=== PATIENT | female | born 1990 | race Caucasian/White ===

== ENCOUNTER 2016-06-02 22:09 | Inpatient (IN) | payer OTHER ==
[~2016-06-02] VITALS: Ht 180.3 cm; Wt 115.0 kg
[~2016-06-02 22:09] MED LIST: CEPH2CAP PO; PERCOCET PO; PRENTAB45 PO; RANI1TAB6 PO; TYLE325T5 PO; ZOLO100T PO
[2016-06-02] MEDS ORDERED: BETAMETHASONE SOLUSPAN 6MG/ML INJ 5ML (J0702) IM SCH (23:15)
[2016-06-02] MEDS ORDERED: MAGNESIUM SULFATE 4% INJ 20GM/500ML (40MG/ML) (J3475) As Ordered ONE (23:15)
[2016-06-02] MEDS ORDERED: LR 1,000 ML IV SCH (23:20)
[2016-06-02] MEDS ORDERED: MAGNESIUM *L&D* 4 GM/100 ML BAG (40MG/ML) (J3475) As Ordered ONE (23:20)
[2016-06-02] MEDS ORDERED: AMPICILLIN 2 GM VIAL As Ordered ONE (23:21)
[2016-06-02] MEDS ORDERED: CALCIUM GLUCONATE 1,000 MG in D5W MINI-BAG PLUS 100 ML IV PRN (23:30)
[2016-06-02] MEDS ORDERED: MAG Sulf (L&D) 4 GM/100 ML 6 GM in APPROPRIATE DILUENT 1 EA IV ONE (23:45)
[2016-06-02] MEDS ORDERED: MAG Sulf (OBGYN) 20GM/500ML 20,000 MG in APPROPRIATE DILUENT 1 EA IV SCH (23:45)
[2016-06-02 23:58] LABS: BASO # 0.1 K/mm3 (0.0-0.2); BASO % 0.6 % (0.0-1.0); EOS % 0.4 % (0.0-3.0); LARGE UNSTAINED CELL # 0.4 K/mm3 (0.0-0.4); LARGE UNSTAINED CELL % 3.9 % (0.0-4.0); LYMPH # 2.6 K/mm3 (1.5-6.5); LYMPH % 25.7 % (24.0-44.0); MEAN CORPUSCULAR HEMOGLOBIN 27.6 pg (27.0-33.0); MEAN CORPUSCULAR HGB CONC 33.9 g/dl (32.0-36.5); MEAN CORPUSCULAR VOLUME 81.3 fl (80.0-96.0); MONO # 0.4 K/mm3 (0.0-0.8); MONO % 4.2 % (0.0-5.0); NEUTROPHILS # 6.7 K/mm3 (1.8-7.7); NEUTROPHILS % 65.2 % (36.0-66.0); PLATELET COUNT, AUTOMATED 218 k/mm3 (150-450); WHITE BLOOD COUNT 10.2 K/mm3 (4.0-10.0)
[2016-06-02] MEDS ORDERED: VANCOMYCIN 1000 MG/20 ML VIAL (J3370) As Ordered ONE (23:59)
[2016-06-03] VITALS (8 sets, daily range): BP systolic 121–144; BP diastolic 74–89
[2016-06-03] MEDS ORDERED: VANCOMYCIN HCL 1,000 MG, VIAL MATE ADAPTER 1 EACH in D5W 250 ML IV SCH ×3
[2016-06-03] MEDS ORDERED: OXYTOCIN 30 UNITS IN 0.9% NaCl 500ML IV BAG (J2590) As Ordered ONE ×2 (00:06→01:48)
[2016-06-03] MEDS ORDERED: fentaNYL 100 MCG/2 ML INJECTION (J3010) As Ordered ONE ×2 (01:25→03:31)
[2016-06-03] MEDS ORDERED: LIDOCAINE 1% SDV INJ 30 ML VIAL As Ordered ONE (02:26)
[2016-06-03] MEDS ORDERED: CARBOPROST TROMETHAMINE 250 MCG/ML AMP As Ordered ONE (02:59)
[2016-06-03 03:26] LABS: CORD GAS ABE V -9.9; CORD GAS HCO3 V 16.4 MEQ/L; CORD GAS O2 SAT V 78.6 %; CORD GAS PCO2 V 37.3 mmHg; CORD GAS PH V 7.261 UNITS; CORD GAS PO2 V 38.9 mmHg; CORD GAS SBC V 16.3 MEQ/L; CORD GAS TCO2 V 17.5 MEQ/L
[2016-06-03] MEDS ORDERED: LIDOCAINE 2% INJ 100 MG/5 ML SYRINGE As Ordered ONE (03:31)
[2016-06-03] MEDS ORDERED: PROPOFOL 200 MG/20 ML VIAL As Ordered ONE ×2 (03:31→04:00)
[2016-06-03] MEDS ORDERED: MIDAZOLAM INJ 2 MG/2 ML VIAL (J2250) As Ordered ONE (03:31)
[2016-06-03] MEDS ORDERED: ESTROGENS VAGINAL CREAM 30GM As Ordered ONE (04:12)
[2016-06-03] MEDS ORDERED: ESTROGENS VAGINAL CREAM 30GM PV ONE (04:25)
[2016-06-03] MEDS ORDERED: OXYTOCIN DRIP 30 UNITS in APPROPRIATE DILUENT 1 EA IV SCH (05:14)
[2016-06-03] MEDS ORDERED: LR 1,000 ML IV SCH (05:15)
[2016-06-03] MEDS ORDERED: miSOPROStol 200 MCG TAB (S0191) PR ONE (05:15)
[2016-06-03] MEDS ORDERED: DIBUCAINE 1% OINTMENT 30GM TOP PRN (05:15)
[2016-06-03] MEDS ORDERED: METHYLERGONOVINE MALEATE 0.2 MG/ML VIAL (J2210) IM ONE (05:15)
[2016-06-03] MEDS ORDERED: RHOGAM 300 MCG (1500 IU) INJ (J2790) IM SCH (05:15)
[2016-06-03] MEDS ORDERED: fentaNYL 100 MCG/2 ML INJECTION (J3010) IV PRN (05:15)
[2016-06-03] MEDS ORDERED: ONDANSETRON 4MG/2ML VIAL (J2405) IV PRN ×2 (05:15)
[2016-06-03] MEDS ORDERED: MORPHINE 2 MG/ML 1ML SYRINGE IV PRN (05:15)
[2016-06-03] MEDS ORDERED: MEASLES,MUMPS,RUBELLA VACCINE INJ (MMR-II) (90707) SC SCH (05:15)
[2016-06-03] MEDS ORDERED: LIDOCAINE 1% MDV INJ 50 ML VIAL INFIL ONE (05:15)
[2016-06-03] MEDS ORDERED: IBUPROFEN 800 MG TAB PO PRN (05:15)
[2016-06-03] MEDS ORDERED: DOCUSATE SODIUM 100 MG CAP PO PRN (05:15)
[2016-06-03] MEDS ORDERED: GENTAMICIN SULFATE IV ONE (05:30)
[2016-06-03] MEDS ORDERED: CLINDAMYCIN 900 MG in APPROPRIATE DILUENT 1 EA IV ONE (05:30)
[2016-06-03] MEDS ORDERED: D5W IV ONE (05:30)
--- NOTE | 2016-06-03 05:37 | HPEPDOC ---
Obstetrical History & Physical General Date of Admission Jun 02, 2016 at 23:04 History of Present Illness Sheela is a 26yo with SIUP at 32w0d as of midnight 06/03 who presented at 2230 with complaint of leakage of fluid, yellowish, and contractions. Feels good movement. course significant for known megacystic bladder with bilateral hydronephrosis. She was scheduled to meet with [facility] in [place] next week for first time. 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 She recently transferred care here from [place]. She also had chlamydia in early with test of cure performed, but result as yet unknown. She has Crohn's disease, not on any medications. Also, depression treated with zoloft. Allergic to amoxicillin (hives). GBS unknown. Chief Complaint: Contractions, pre-term, LOF, pre-term Information Provided By: Patient Care Care: Good Care Dating Final EDC: Jul 29, 2016 Antepartum Course Diagnos(e)s course significant for known megacystic bladder with bilateral hydronephrosis. She was scheduled to meet with [facility] in [place] next week for first time. 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 She also had chlamydia in early with test of cure performed, but result as yet unknown. She has Crohn's disease, not on any medications. Also, depression treated with zoloft. Past Medical History Past Obstetrical History : Past Obstetrical History: Multigravida Gestation: 37 Type of Delivery: Spontaneous Vaginal Del. Sex of : Male Complications: Yes ( hemorrhage, NO blood transfusion) CAT TENDER History: History of STD Past Medical History Medical History Crohn's disease, not on any medications. Also, depression treated with zoloft. Allergic to amoxicillin (hives). Surgical History: Denies Family History Significant Family History: No pertinent family hx Social History Marital Status: Family situation: Spouse/partner home Psychosocial History: Anxiety, Depression * Smoker: non-smoker Alcohol: denies Drugs: denies Allergies Coded Allergies: Amoxicillin (Verified Allergy, Mild, 03/05/13) RASH Clavulanic Acid (Verified Allergy, Mild, 03/05/13) RASH Medications Scheduled ( One Daily) Daily Tab 1 TAB PO DAILY Ranitidine HCl (Ranitidine [address]) 150 Mg Tab 1 TAB PO DAILY Sertraline Hcl (Zoloft) 100 Mg Tab 100 MG PO DAILY Miscellaneous Medications Acetaminophen (Tylenol) 325 Mg Tab 650 MG PO PAIN SCALE 1-5 Physical Examination Physical Examination GENERAL: Alert and oriented times three, uncomfortable with contractions. BREAST: . ABDOMEN: Gravid and non-tender to touch. FETUS: Is vertex (VTX) by sterile vaginal examination (SVE) and TAUS HEART RATE: Regular rate and rhythm. LUNGS: Clear to auscultation (CTA). EXTREMITIES: trace edema bilateral lower extremities Grossly ruptured on presentation with bright yellow fluid and nitrazine immediately positive. SSE revealed hair with pooling. Laboratory Data 24H LABS Laboratory Tests 2 06/02/16 23:30: White Blood Count 10.2H, Red Blood Count 4.15, Hemoglobin 11.5L, Hematocrit 33.7L, Mean Corpuscular Volume 81.3, Mean Corpuscular Hemoglobin 27.6, Mean Corpuscular Hemoglobin Concent 33.9, Red Cell Distribution Width 15.0H, Platelet Count 218, Neutrophils (%) (Auto) 65.2, Lymphocytes (%) (Auto) 25.7, Monocytes (%) (Auto) 4.2, Eosinophils (%) (Auto) 0.4, Basophils (%) (Auto) 0.6, Neutrophils # (Auto) 6.7, Lymphocytes # (Auto) 2.6, Monocytes # (Auto) 0.4, Eosinophils # (Auto) 0.0, Basophils # (Auto) 0.1, Large Unclassified Cells # 0.4 , Large Unclassified Cells % 3.9 CBC/BMP Laboratory Tests 06/02/16 23:30 Red Blood Count 4.15, Mean Corpuscular Volume 81.3, Mean Corpuscular Hemoglobin 27.6, Mean Corpuscular Hemoglobin Concent 33.9, Red Cell Distribution Width 15.0 H, Neutrophils (%) (Auto) 65.2, Lymphocytes (%) (Auto) 25.7, Monocytes (%) (Auto) 4.2, Eosinophils (%) (Auto) 0.4, Basophils (%) (Auto) 0.6, Neutrophils # (Auto) 6.7, Lymphocytes # (Auto) 2.6, Monocytes # (Auto) 0.4, Eosinophils # ( Auto) 0.0, Basophils # (Auto) 0.1 Pertinent Laboratoy Data Blood Type: A- RBC Antibody Screen: Negative HIV: Negative Hepatitis B: Negative Hepatitis C: Unknown Rapid Plasma Reagin: Nonreactive Chlamydia/Gonorrhea: Positive Group B Streptococcus: Unknown Steroid Therapy Steroid Therapy: No Vaginal Examination Dilation: 6 cm Effacement: 80+% Station: -2 Cervical Consistency: Soft Cervical Position: Anterior Presentation: Cephalic presentation Assessment Heart Rate (FHR): 130 Variability: Moderate Accelerations: Positive Decelerations: None Tocometer Contractions: Yes Frequency: every 2-4 min. Duration: greater than 60 seconds Strength: palpated as strong Assessment/Plan Assessment Sheela is a 26yo with SIUP at 32w0d as of midnight 06/03 with PPROM at 1930, yellow. Grossly ruptured with bright yellow fluid- does not appear to be meconium, nitrazine positive. In active labor with initial SCE 6/80/-2. Cephalic by TAUS, prominent enlarged bladder noted. Reassuring FHRT with ctx q2-3 min. course significant for known megacystic bladder with bilateral hydronephrosis. She was scheduled to meet with [facility] in [place] next week for first time. 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 She also had chlamydia in early with test of cure performed, but result as yet unknown. She has Crohn's disease, not on any medications. Also, depression treated with zoloft. Allergic to amoxicillin (hives). GBS unknown. Plan Admit and orient. Verbally counseled and consented for vaginal delivery. I had a thorough discussion with Sheela regarding delivery and the possibility for intracranial hemorrhage, necrotizing enterocolitis, and respiratory distress. I explained the rationale for steroids for lung maturity and Mg for neuroprotection as well as abx for GBS unknown. I spoke with NICU Dr. Greer about the patient and requested his presence for delivery. I spoke with a physician from [facility] who confirmed vaginal delivery is the approved mode of delivery despite the 's megacystic bladder. Betamethasone 12mg IM q24hr IV Magnesium, 6g bolus then 2g maintenance dose per protocol GBS unknown with labor/PPROM, needs abx prophylaxis- allergy to amox: vancomycin 1g q12hr Diet: clear liquids Labs and intravenous (IV) per unit protocol. Lactated Ringers (LR): Bolus 500 mL, then at 125 mL/hr. Anticipate ESTEPHANIA Caldera MD Jun 03, 2016 00:14
[2016-06-03 05:42] LABS: MEAN CORPUSCULAR HEMOGLOBIN 27.8 pg (27.0-33.0); MEAN CORPUSCULAR HGB CONC 33.8 g/dl (32.0-36.5); MEAN CORPUSCULAR VOLUME 82.2 fl (80.0-96.0); RED CELL DISTRIBUTION WIDTH 15.8 % (11.5-14.5); WHITE BLOOD COUNT 23.9 K/mm3 (4.0-10.0)
[2016-06-03] MEDS ORDERED: METAL LOCK LOOP XX ONE (06:25)
[2016-06-03] MEDS: PERCOCET 5MG/325MG TAB PO PRN ×5 (06:37→22:10)
[2016-06-03] MEDS ORDERED: MORPHINE 10 MG/ML 1ML VIAL IV ONE (06:45)
[2016-06-03] MEDS ORDERED: SERTRALINE 100 MG TAB PO SCH ×2 (09:00→21:00)
[2016-06-03] MEDS ORDERED: PRENATAL VITAMIN TAB PO SCH (09:00)
--- NOTE | 2016-06-03 11:33 | DNPDOC ---
Delivery Note Delivery Note Late entry due to extensive cervical laceration repair for patient after delivery. DATE OF DELIVERY: Jun 01, 2016 at 11:06 PREDELIVERY DIAGNOSIS: PPROM/active labor at 32wk gestation, known megacystic bladder with bilateral hydronephrosis POST DELIVERY DIAGNOSIS: PPROM/active labor at 32wk gestation, known megacystic bladder with bilateral hydronephrosis, delivered with complication of "abdominal dystocia", post- hemorrhage with extensive cervical laceration PROCEDURE: Spontaneous vaginal delivery complicated by "abdominal dystocia " FABRICATION SUPERVISOR: Dr. Estephania Calhoun MD ANESTHESIA: none ESTIMATED BLOOD LOSS: 700 mL. FINDINGS: Female with abdominal circumference 42cm,no nuchal cord, Score 3/4, cord gas pHv 7.261 with BE -9.9 DELIVERY SUMMARY: Sheela is a 26yo G2 now P1102 who was admitted to L&D for PPROM/active labor- she was 31w6d when she presented to L&D, but only an hour and a half shy of 32wk. On presentation she was grossly ruptured with nitrizine positive. SCE 6/80 /-2 with regular painful ctx. TAUS revealed cephalic presentation with very prominent bladder, consistent with known megacystic bladder and bilateral hydronephrosis. Patient was not stable for transfer since she was rapidly progressing in labor. I called to [facility] and spoke with the on-call MFM who stated recommendation was to deliver the patient vaginally despite the megacystic bladder. I called Dr. Greer the on-call worm sorter and informed him the patient would be delivering here, and requested his presence for delivery. The patient was given 12mg IM betamethasone for lung maturity and started on 6g IV Mg bolus for neuroprotection. Vancomycin was ordered for pre-term delivery with GBS status unknown and patient's PCN allergy. Within 2 hours the patient progressed to complete with urge to push. She was not able to receive epidural prior to pushing. Given that patient was proven to 9lb previously, she made somewhat slow progress with pushing given the gestational age of 32wk- which alerted me to the fact that the delivery of the abdomen might be difficult. The FHRT remained reassuring during pushing efforts. Dr. Greer was present for the whole of the patient's pushing efforts and delivery. Female delivered at 0113 on 06/03/16. Head delivered OP, the perineum was tight on the chin which was consistent with "turtling". Head restituted ROP. No nuchal cord. While there was no shoulder dystocia (as the anterior shoulder was clearly visible, having delivered under the pubic bone) there was no further progress with maternal pushing efforts and attempt to deliver the baby. At that point the patient was placed in McRobert's position and suprapubic pressure was given with still no progress. I reached in and delivered the posterior shoulder and then the anterior shoulder. With traction on the baby's torso, there was no forward movement. I called for help from the flight test shop mechanic present for the civilian practice, and continued traction on the torso. When the flight test shop mechanic arrived, she helped give even further McRobert's positioning, and the abdomen then began to deliver slowly, cm by cm with great effort on the part of this provider. corpus delivered fully and cord was immediately clamped x2 and cut by myself. The was taken to the awaiting pediatric team. Apgars 3/4. Cord blood obtained due to maternal blood type of A neg and blood gases obtained secondary to "abdominal dystocia". pHv 7.261 and BE -9.9. With gentle downward guidance and suprapubic pressure, placenta delivered spontaneously and intact with a centrally inserted cord. The placenta was approximately twice the size and weight of a normal placenta but otherwise grossly normal in appearance. Fundal massage until both uterine fundus and lower uterine segment firm. Pitocin 30 units IV bolus administered. IV Mg discontinued. Uterus became boggy, so 0.2mg IM methergine given as well as 1000mcg cytotec placed rectally. Inspection of perineum and vaginal wall revealed small 1MLL that was hemostatic , but patient continued to have steady trickling of blood. Uterine sweep performed x3 with only clot retrieved. Bleeding continued. I attempted visualization of the cervix to look for cervical laceration, but even with cervical lac kit and assistance of the flight test shop mechanic, I could not fully walk the cervix and visualize that it was intact. At that point I made the decision to proceed to the OR for exam under anesthesia and called Dr. Velasquez in for further assistance. Please see dictated op report for details of extensive cervical laceration repair and repair of 1mll. Patient received dose of gent/clinda for manual sweeps. was immediately taken to NICU by pediatric team and then transported to [facility] for higher level of care in the setting of anomaly. ESTEPHANIA CALHOUN MD Jun 03, 2016 11:33
--- NOTE | 2016-06-03 11:45 | IPNPDOC ---
Text Note Date of Service The patient was seen on 06/03/16 at 11:33. NOTE Sheela is a 26yo [id number] doing well on PPD 0 s/p at 32w0d complicated by abdominal dystocia related to known megacystic bladder as well as extensive cervical laceration repaired in the OR with associated post- hemorrhage, after presenting to L&D for PPROM/active rapid labor. She received gent/clinda for uterine sweeps, has vaginal packing and chicas in place. She is tolerating regular diet with no n/v. Has no fevers/chills. Is feeling low back/ hip pain and pain in her upper left leg that is keeping her from ambulating. Receiving percocet/motrin for pain, but required a 1 time dose of IV morphine for her pain early this morning. No bleeding noted around the vaginal packing. No dizziness or lightheadedness. Baby was immediately taken to [place] for higher level of care after delivery. Patient desires to breastfeed. Vitals wnl, afebrile General: WDWN, NAD Cardiac: S1S2 present, no murmur Lungs: CTAB Abdomen: soft, appropriately tender to palpation without rebound/guarding, fundus firm at u-2cm Extremities: trace edema of BLE, patient freely moves right leg but declines moving left leg secondary to pain though able to move and easily moves toes H/H: 11.5/33.7 to 11.2/33.1 which is not the expected drop you would see with total EBL from delivery and PPH and OR repair of cervical lac of 1100ml. UOP is robust A/P: Sheela is a 26yo [id number] doing well on PPD 0 s/p at 32w0d complicated by abdominal dystocia related to known megacystic bladder as well as extensive cervical laceration repaired in the OR with associated post- hemorrhage, after presenting to L&D for PPROM/active rapid labor. Her back/hip/leg pain is likely related to positioning on the OR table for the length of time required to repair her cervical lac in combination with delivery. No neuropathy present. Chicas in place with adequate UOP. Vaginal packing in place. Hemodynamically stable with no e/o infection. -Routine care -percocet and motrin for pain -if requires no further doses of IV narcotic, ok to d/c IV -will plan to remove vaginal packing 12hr after placement, later this afternoon -after vaginal packing removed, can remove chicas if patient demonstrates she can walk easily -patient encouraged to breast pump -possible discharge home tomorrow if meeting all milestones Dr. Estephania Calhoun MD Julian GUSTAVO VS,José, I+O VS, José, I+O Laboratory Tests 06/02/16 23:30 Red Blood Count 4.15, Mean Corpuscular Volume 81.3, Mean Corpuscular Hemoglobin 27.6, Mean Corpuscular Hemoglobin Concent 33.9, Red Cell Distribution Width 15.0 H, Neutrophils (%) (Auto) 65.2, Lymphocytes (%) (Auto) 25.7, Monocytes (%) (Auto) 4.2, Eosinophils (%) (Auto) 0.4, Basophils (%) (Auto) 0.6, Neutrophils # (Auto) 6.7, Lymphocytes # (Auto) 2.6, Monocytes # (Auto) 0.4, Eosinophils # ( Auto) 0.0, Basophils # (Auto) 0.1 06/03/16 05:28 Red Blood Count 4.02, Mean Corpuscular Volume 82.2, Mean Corpuscular Hemoglobin 27.8, Mean Corpuscular Hemoglobin Concent 33.8, Red Cell Distribution Width 15.8 H Vital Signs Date Time Temp Pulse Resp B/P Pulse Ox O2 Delivery O2 Flow Rate FiO2 06/03/16 10:43 97.8 88 20 135/87 98 Room Air I&O- Last 24 Hours up to 6 AM 06/03/16 06:00 Intake Total 1545 ml Output Total 950 ml Balance 595 ml ESTEPHANIA CALHOUN MD Jun 03, 2016 11:45
[2016-06-03 17:32] LABS: BASO % 0.2 % (0.0-1.0); LARGE UNSTAINED CELL # 0.5 K/mm3 (0.0-0.4); LARGE UNSTAINED CELL % 2.7 % (0.0-4.0); LYMPH % 10.4 % (24.0-44.0); MEAN CORPUSCULAR HEMOGLOBIN 27.4 pg (27.0-33.0); MEAN CORPUSCULAR HGB CONC 32.9 g/dl (32.0-36.5); MONO # 0.8 K/mm3 (0.0-0.8); MONO % 4.3 % (0.0-5.0); NEUTROPHILS # 15.6 K/mm3 (1.8-7.7); NEUTROPHILS % 82.4 % (36.0-66.0); PLATELET COUNT, AUTOMATED 242 k/mm3 (150-450); RED CELL DISTRIBUTION WIDTH 15.3 % (11.5-14.5)
[2016-06-04 02:17] VITALS: BP 131/72
[2016-06-04] MEDS: PERCOCET 5MG/325MG TAB PO PRN (05:40)
[2016-06-04 06:34] VITALS: BP 125/70
[2016-06-04 06:55] LABS: MEAN CORPUSCULAR HEMOGLOBIN 27.9 pg (27.0-33.0); MEAN CORPUSCULAR HGB CONC 33.3 g/dl (32.0-36.5); RED CELL DISTRIBUTION WIDTH 15.7 % (11.5-14.5); WHITE BLOOD COUNT 13.8 K/mm3 (4.0-10.0)
--- NOTE | 2016-06-04 09:27 | IPNPDOC ---
Text Note Date of Service The patient was seen on 06/04/16 at 09:20. NOTE Post- day 1 Sheela is a 26yo [id number] doing well on PPD 1 s/p at 32w0d complicated by abdominal dystocia related to known megacystic bladder as well as extensive cervical laceration repaired in the OR with associated post- hemorrhage, after presenting to L&D for PPROM/active rapid labor. She received gent/clinda for uterine sweeps, had vaginal packing and chicas removed yesterday afternoon. Since then she has been ambulating and voiding spontaneously with no problem. Lochia is minimal She is tolerating regular diet with no n/v. Has no fevers/chills. Her back and leg pain is improved. Receiving percocet/motrin for pain. No dizziness or lightheadedness. Baby was immediately taken to [place] for higher level of care after delivery. Patient has been breast pumping and saving colostrum. She states this morning that she was finally able to cry yesterday as the magnitude of her baby's current situation finally really settled with her. Her mother will likely be flying up soon to be here to support her. Vitals wnl, afebrile General: WDWN, NAD Cardiac: S1S2 present, no murmur Lungs: CTAB Abdomen: soft, appropriately tender to palpation without rebound/guarding, fundus firm at u-2cm Extremities: trace edema of BLE H/H: 11.5/33.7 on presentation 8.7/26.1 this morning, which is consistent with total EBL from PPH and OR repair of cervical lac of 1100ml. A/P: Sheela is a 26yo [id number] doing well on PPD 1 s/p at 32w0d complicated by abdominal dystocia related to known megacystic bladder as well as extensive cervical laceration repaired in the OR with associated post- hemorrhage, after presenting to L&D for PPROM/active rapid labor. Ambulating and voiding spontaneously without issue since vaginal packing and chicas removed yesterday- lochia minimal. Hemodynamically stable with no e/o infection. Appropriately coping with severity of her 's health complications. -discharge to home today -percocet and motrin for pain -patient encouraged to breast pump -follow up with Dr. Calhoun in 2 weeks for routine visit -minipill for contraception Dr. Estephania Calhoun MD ArchbaldSam DURANT,José, I+O VS, José I+O Laboratory Tests 06/03/16 17:19 Red Blood Count 3.37 L, Mean Corpuscular Volume 83.0, Mean Corpuscular Hemoglobin 27.4, Mean Corpuscular Hemoglobin Concent 32.9, Red Cell Distribution Width 15.3 H, Neutrophils (%) (Auto) 82.4 H, Lymphocytes (%) (Auto ) 10.4 L, Monocytes (%) (Auto) 4.3, Eosinophils (%) (Auto) 0.0, Basophils (%) ( Auto) 0.2, Neutrophils # (Auto) 15.6 H, Lymphocytes # (Auto) 2.0, Monocytes # ( Auto) 0.8, Eosinophils # (Auto) 0.0, Basophils # (Auto) 0.0 06/04/16 06:29 Red Blood Count 3.11 L, Mean Corpuscular Volume 84.0, Mean Corpuscular Hemoglobin 27.9, Mean Corpuscular Hemoglobin Concent 33.3, Red Cell Distribution Width 15.7 H Vital Signs Date Time Temp Pulse Resp B/P Pulse Ox O2 Delivery O2 Flow Rate FiO2 06/04/16 06:34 98.2 84 16 125/70 06/04/16 05:40 100 06/04/16 02:17 Room Air I&O- Last 24 Hours up to 6 AM 06/04/16 05:59 Intake Total 3030 ml Output Total 5575 ml Balance -2545 ml ESTEPHANIA CALHOUN MD Jun 04, 2016 09:24
--- NOTE | 2016-06-04 09:53 | DS.PDOC ---
Discharge Summary Date Of Admission Jun 02, 2016 at 23:04 Date of Discharge Jun 04, 2016 Discharge Summary ATTENDING TODAY: Estephania Calhoun MD SPECIALIST/CONSULTATIONS INVOLVED DURING STAY: Neonatology, M recommendations were given for mode of delivery PROCEDURES PERFORMED DURING STAY: Exam under anesthesia in the OR with repair of extensive cervical laceration after delivery COMPLICATIONS/CHIEF COMPLAINT: loss of fluid, painful regular contractions ADMISSION DIAGNOSES: 1. PPROM/active labor at 31w6d 2. Known anomaly: megacystic bladder 3. Depression treated with zoloft 4. Chlamydial infection in early DISCHARGE DIAGNOSES: 1. PPROM/active labor at 31w6d 2. Known anomaly: megacystic bladder 3. spontaneous vaginal delivery at 32 weeks gestation complicated by " abdominal dystocia" 4. hemorrhage related to extensive cervical laceration 5. Depression treated with zoloft 6. Chlamydial infection in early HISTORY OF PRESENT ILLNESS/HOSPITAL COURSE: Sheela is a 26 year old [id number] who had a spontaneous vaginal delivery at 32w0d complicated by abdominal dystocia related to known megacystic bladder as well as extensive cervical laceration repaired in the OR with associated post- hemorrhage, after presenting to L&D for premature rupture of membranes/active rapid labor. Sheela presented to L&D when she was 31w6d, but only an hour and a half shy of 32 weeks. On presentation she was grossly ruptured with nitrizine positive. Sterile cervical exam was 6/80/-2 with regular painful contractions. Transabdominal ultrasound revealed cephalic presentation with very prominent bladder, consistent with known megacystic bladder and bilateral hydronephrosis. Patient was not stable for transfer since she was rapidly progressing in labor. I called to [facility] and spoke with the on-call MFM who stated recommendation was to deliver the patient vaginally despite the megacystic bladder. I called Dr. Greer the on-call steel grinder and informed him the patient would be delivering here, and requested his presence for delivery. The patient was given 12mg IM betamethasone for lung maturity and started on 6g IV magnesium bolus for neuroprotection. Vancomycin was ordered for pre-term delivery with GBS status unknown and patient's penicillin allergy. Within 2 hours the patient progressed to complete with urge to push. She was not able to receive epidural prior to pushing. The heart rate tracing remained reassuring during pushing efforts. Dr. Greer was present for the whole of the patient's pushing efforts and delivery. Female delivered at 0113 on 06/03/16. There was NO nuchal cord or shoulder dystocia, but there was a " abdominal dystocia" related to the 's megacystic bladder. Apgars were 3/4, but cord gas pHv 7.261 with BE - 9.9. The was immediately handed to the awaiting NICU team and after stabilization, transported to [facility] for higher level of care in the setting of anomaly. The placenta was delivered spontaneously and intact with a centrally inserted cord, but it was approximately twice the size and weight of a normal placenta and sent to pathology for further evaluation. Patient continued to have vaginal bleeding despite uterine sweeps and uterotonics given (Pitocin, methergine and cytotec), with only a small first degree midline laceration that was hemostatic. Lack of ability to fully visualize the cervix required performing an exam under anesthesia in the OR (please see dictated operative report for details of extensive cervical laceration repair and repair of first degree laceration). Total estimated blood loss for hemorrhage related to cervical laceration was 1100 ml. Vaginal packing was placed after cervical laceration repair and chicas also kept in place until 12 hours after the laceration repair. Patient received both gentamycin and clindamycin for the uterine sweeps she received. She was afebrile for her entire hospital course. After vaginal packing and chicas were removed, she was easily ambulating and voiding spontaneously with minimal lochia. DISCHARGE MEDICATIONS: Please see below. ALLERGIES: Please see below. PHYSICAL EXAMINATION ON DISCHARGE: Vitals within normal limits, afebrile General: well developed, well nourished, no acute distress Cardiac: S1S2 present, no murmur Lungs: clear to auscultation bilaterally Abdomen: soft, appropriately tender to palpation without rebound/guarding, fundus firm at u-2cm Extremities: trace edema of bilateral lower extremities LABORATORY DATA: Please see below. (H/H: 11.5/33.7 on presentation and 8.7/26.1 on discharge, which is consistent with total estimated blood loss from hemorrhage of 1100ml) IMAGING: none VTE Prophylaxis ordered?: none required DISCHARGE CONDITION: stable DISPOSITION: discharge to home ACTIVITY: ad irvin, vaginal rest for 6 weeks DIET: regular ITEMS TO FOLLOWUP ON OUTPATIENT: none DISCHARGE PLAN AND INSTRUCTIONS: 1. discharge to home today 2. percocet and motrin for pain 3. patient encouraged to breast pump for baby in NICU 4. follow up with Dr. Calhoun in 2 weeks for routine visit 5. minipill for contraception TIME SPENT ON DISCHARGE: Greater than 30 minutes. Vital Signs/I&Os Vital Signs Date Time Temp Pulse Resp B/P Pulse Ox O2 Delivery O2 Flow Rate FiO2 06/04/16 06:34 98.2 84 16 125/70 06/04/16 05:40 100 06/04/16 02:17 Room Air I&O- Last 24 Hours up to 6 AM 06/04/16 05:59 Intake Total 3030 ml Output Total 5575 ml Balance -2545 ml Laboratory Data Labs 24H Laboratory Tests 2 06/03/16 17:19: White Blood Count 19.0H, Red Blood Count 3.37L, Hemoglobin 9.2#L, Hematocrit 28.0L, Mean Corpuscular Volume 83.0, Mean Corpuscular Hemoglobin 27.4, Mean Corpuscular Hemoglobin Concent 32.9, Red Cell Distribution Width 15.3H, Platelet Count 242, Neutrophils (%) (Auto) 82.4H, Lymphocytes (%) (Auto) 10.4L, Monocytes (%) (Auto) 4.3, Eosinophils (%) (Auto) 0.0, Basophils (%) (Auto) 0.2, Neutrophils # (Auto) 15.6H, Lymphocytes # (Auto) 2.0, Monocytes # (Auto) 0.8, Eosinophils # (Auto) 0.0, Basophils # (Auto) 0.0, Large Unclassified Cells # 0.5H, Large Unclassified Cells % 2.7 CBC/BMP Laboratory Tests 06/03/16 17:19 Red Blood Count 3.37 L, Mean Corpuscular Volume 83.0, Mean Corpuscular Hemoglobin 27.4, Mean Corpuscular Hemoglobin Concent 32.9, Red Cell Distribution Width 15.3 H, Neutrophils (%) (Auto) 82.4 H, Lymphocytes (%) (Auto ) 10.4 L, Monocytes (%) (Auto) 4.3, Eosinophils (%) (Auto) 0.0, Basophils (%) ( Auto) 0.2, Neutrophils # (Auto) 15.6 H, Lymphocytes # (Auto) 2.0, Monocytes # ( Auto) 0.8, Eosinophils # (Auto) 0.0, Basophils # (Auto) 0.0 06/04/16 06:29 Red Blood Count 3.11 L, Mean Corpuscular Volume 84.0, Mean Corpuscular Hemoglobin 27.9, Mean Corpuscular Hemoglobin Concent 33.3, Red Cell Distribution Width 15.7 H Medications Scheduled ( One Daily) Daily Tab 1 TAB PO DAILY Ranitidine HCl (Ranitidine [address]) 150 Mg Tab 1 TAB PO DAILY Sertraline Hcl (Zoloft) 100 Mg Tab 100 MG PO DAILY Miscellaneous Medications Acetaminophen (Tylenol) 325 Mg Tab 650 MG PO PAIN SCALE 1-5 Allergies Coded Allergies: Amoxicillin (Verified Allergy, Mild, 03/05/13) RASH Clavulanic Acid (Verified Allergy, Mild, 03/05/13) RASH ESTEPHANIA CALHOUN MD Jun 04, 2016 09:38
[2016-06-04] MEDS ORDERED: IBUP-1114 PO (10:09)
[2016-06-04] MEDS ORDERED: OXYC1TAB23 PO (10:11)
--- NOTE | 2016-06-06 06:29 | RO ---
DATE OF PROCEDURE: 06/03/2016 PREOPERATIVE DIAGNOSES: 1. hemorrhage, rule out cervical laceration. 2. First degree midline laceration. POSTOPERATIVE DIAGNOSES: 1. Extensive cervical lacerations. 2. Scant amount of retained membranes. OPERATION PERFORMED: Exam under anesthesia with repair of cervical laceration and repair of first degree midline laceration. SURGEON: Saskia Calhoun MD MASTER POLICE DETECTIVE: Vazquez Velasquez MD ANESTHESIA: Spinal with sedation. MATERIALS FORWARDED TO THE LAB FOR EXAMINATION: Likely retained membranes. DESCRIPTION OF FINDINGS: Exam under anesthesia revealed a very significant complicated cervical laceration. She had a first degree midline laceration that was noted to be hemostatic. Transabdominal ultrasound revealed a 1.2 cm stripe with no clots after two manual sweeps that only returned a very scant amount of retained membranes. INFECTION CLASSIFICATION: 2. ESTIMATED BLOOD LOSS: 400 mL of blood loss in the operating room for a total of 1100 mL with the 700 mL of blood loss on labor and delivery. 1.5 liters of lactated Ringers IV fluid and 500 mL urine output via a Soni. INDICATION FOR OPERATION: Sheela is a 26-year-old, (G) 2, now para (P) 1-1-0-2, who presented to labor and delivery in active labor with premature rupture of membranes at 31 weeks 6 days just prior to midnight. She had a known anomaly which was megacystic bladder with bilateral hydronephrosis and she had a spontaneous vaginal delivery complicated by both a abdominal dystocia as well as a hemorrhage related to a cervical laceration. Given the lack of visualization in the labor room, the decision was made to proceed to the operating room for exam under anesthesia to have better visualization of the reason for her continued bleeding despite the fact that she had no atony after being treated with Methergine, Cytotec and Pitocin. She had no significant vaginal lacerations so suspicion was high for cervical laceration, but increased visualization was necessary. DESCRIPTION OF OPERATION: After obtaining informed consent, Sheela was taken to the operating room where she underwent spinal anesthesia with sedation. She was placed in low lithotomy position and the perineum and vagina were prepped and draped in sterile fashion. Soni catheter was placed. Weighted speculum and retractors were inserted in the vagina and a through inspection was completed. She had the known first degree midline laceration which was hemostatic and it took very close observation with walking of the cervix to reveal a very complicated posterior cervical laceration. #0 Vicryl suture was used to reapproximate the various edges of the lacerated cervical tissue. It was not just one defect, but several defects that caused pieces of the cervix to be hanging apart from one another. These were all sutured together to make the cervix one intact cervix which restored normal anatomy. The cervix was noted to be patent after reapproximation of the lacerations and her bleeding after repair was very, very minimal. #4-0 Vicryl suture was used to repair the first degree midline laceration in typical fashion. Prior to repair of the cervical laceration, two manual sweeps were done all the way up to the fundus and cornua of the uterus and only very, very scant pieces of membrane were revealed. The uterus itself was very firm. Confirmation was performed with transabdominal ultrasound and the stripe was 1.2 cm with no clot visualized in the uterus. We then packed the vagina with warm long vaginal packing that was saturated with Premarin cream. The plan is for the vaginal packing to be removed within 12-24 hours. The Soni will be kept in place in the meantime and she will receive one dose of clindamycin and gentamicin for the uterine sweeps that were performed as she has an allergy to penicillin and cannot be given Unasyn. All counts were correct times two. The only thing retained within the vagina was the Premarin saturated vaginal packing. She was awakened from her sedation and transferred to the recovery room in good condition.
== END 2016-06-04 11:00 | disposition home or self-care (01) | DRG 774 ==
LOC: M LDO 22:09 → M LDI 23:04 → M OBS 06-03 05:53
PROVIDERS: ADMIT Obstetrics & Gynecology; ATTEND Obstetrics & Gynecology
PROC: 0UQC7ZZ Repair Cervix, Via Natural or Artificial Opening (ICD-10-PCS; 2016-06-03)
PROC: 0HQ9XZZ Repair Perineum Skin, External Approach (ICD-10-PCS; 2016-06-03)
PROC: 10E0XZZ Delivery of Products of Conception, External Approach (ICD-10-PCS; principal; 2016-06-03 02:11)
DX: O60.14X0 Preterm labor third trimester with preterm delivery third trimester, not applicable or unspecified (principal); O72.1 Other immediate postpartum hemorrhage; N13.30 Unspecified hydronephrosis; O71.3 Obstetric laceration of cervix; Z37.0 Single live birth; Z3A.32 32 weeks gestation of pregnancy; O70.0 First degree perineal laceration during delivery; O42.919 Preterm premature rupture of membranes, unspecified as to length of time between rupture and onset of labor, unspecified trimester